=== PATIENT | male | born 2000 | race Caucasian/White ===

== ENCOUNTER 2022-07-14 08:43 | Emergency (ER) | payer OTHER ==
[~2022-07-14] VITALS: Ht 180.3 cm; Wt 70.9 kg
[2022-07-14] MEDS ORDERED: IBUP200C29 PO (09:05)
[2022-07-14 12:07] VITALS: BP 131/76
== END 2022-07-14 12:12 | disposition home or self-care (01) ==
LOC: M ED 08:43
DX: S80.911A Unspecified superficial injury of right knee, initial encounter (principal); W01.0XXA Fall on same level from slipping, tripping and stumbling without subsequent striking against object, initial encounter; Z79.1 Long term (current) use of non-steroidal anti-inflammatories (NSAID)

== ENCOUNTER 2023-12-27 14:21 | Inpatient (IN) | payer OTHER ==
[~2023-12-27] VITALS: Ht 180.3 cm; Wt 63.2 kg
[~2023-12-27 14:21] MED LIST: IBUP200C29 PO
[2023-12-27] MEDS: GLUCAGON INJ 1MG VIAL IV STA (17:10)
[2023-12-27] MEDS ORDERED: HOME MED LIST COMPLETE! XX SCH (18:40)
[2023-12-27] MEDS ORDERED: propofoL 200 MG/20 ML VIAL As Ordered ONE (19:32)
[2023-12-27] MEDS ORDERED: fentaNYL 100 MCG/2 ML INJECTION As Ordered ONE (19:32)
[2023-12-27] MEDS ORDERED: LIDOCAINE 2% 100MG/5ML SDV (FOR ANES.) As Ordered ONE (19:32)
[2023-12-27] MEDS ORDERED: GLYCOPYRROLATE INJ 0.2 MG/ML 2 ML VIAL As Ordered ONE (19:32)
[2023-12-27] MEDS ORDERED: MIDAZOLAM INJ 2MG/2ML VIAL As Ordered ONE (19:32)
[2023-12-27] MEDS ORDERED: SUCCINYLCHOLINE 100MG/5ML SYRINGE As Ordered ONE (19:32)
[2023-12-27] MEDS ORDERED: METOCLOPRAMIDE INJ 10MG/2ML VIAL As Ordered ONE (19:40)
[2023-12-27] MEDS ORDERED: ONDANSETRON 4MG 2ML VIAL As Ordered ONE (19:40)
[2023-12-27] MEDS ORDERED: ONDANSETRON 4MG 2ML VIAL IV PRN (20:25)
[2023-12-27] MEDS ORDERED: METOCLOPRAMIDE INJ 10MG/2ML VIAL IV PRN (20:25)
[2023-12-27 21:05] VITALS: BP 98/72; TEMP 98.2; O2SAT 98
[2023-12-27] MEDS: SUCRALFATE SUSP 1GM/10ML UD PO SCH (21:30)
[2023-12-27] MEDS: PANTOPRAZOLE 40MG TAB (PROTONIX) PO SCH (21:30)
[2023-12-27] MEDS: KCL 20MEQ IN D5/0.45NS 1000ML 1,000 ML IV SCH (21:30)
[2023-12-27] MEDS: MORPHINE 4 MG/ML 1ML VIAL IV ONE (21:31)
[2023-12-27 21:35] VITALS: BP 103/71; TEMP 98.6; O2SAT 97
[2023-12-27 22:05] VITALS: BP 101/71; TEMP 98.6; O2SAT 96
[2023-12-27 23:00] VITALS: BP 128/79; TEMP 99; O2SAT 96
[2023-12-27] MEDS: FLUCONAZOLE 400 MG in IV 1 EA IV SCH (23:27)
[2023-12-27] MEDS: GASTROGRAFIN SOLUTION 30ML PO SCH (23:34)
[2023-12-27 23:59] VITALS: BP 123/80; TEMP 98.6; O2SAT 97
[2023-12-28] VITALS (16 sets, daily range): BP systolic 114–135; BP diastolic 57–79; TEMP 98.3–99.2; O2SAT 93–99
[2023-12-28] MEDS: PIPERACILLIN/TAZOBACTAM SOD 3.375 GM in D5W MINI-BAG PLUS 50 ML IV SCH (01:01)
[2023-12-28] MEDS: MORPHINE 4 MG/ML 1ML VIAL IV STA (01:27)
[2023-12-28] MEDS: MORPHINE 4 MG/ML 1ML VIAL IV PRN (04:31)
[2023-12-28 05:16] LABS: BASO # 0.1 10^3/uL (0.0-0.2); BASO % 0.4 % (0.0-1.0); EOS # 0.1 10^3/uL (0.0-0.5); EOS % 0.9 % (0.0-3.0); HEMOGLOBIN 14.3 g/dl (13.5-17.5); LYMPH # 2.6 10^3/uL (1.5-5.0); LYMPH % 21.2 % (24.0-44.0); MEAN CORPUSCULAR HEMOGLOBIN 30.3 pg (27.0-33.0); MONO # 0.9 10^3/uL (0.0-0.8); MONO % 7.6 % (2.0-8.0); NEUTROPHILS # 8.5 10^3/uL (1.5-8.5); NEUTROPHILS % 69.6 % (36.0-66.0); PLATELET COUNT, AUTOMATED 219 10^3/uL (150-450); RED BLOOD COUNT 4.72 10^6/uL (4.30-6.10); WHITE BLOOD COUNT 12.2 10^3/uL (4.0-10.0)
[2023-12-28 05:53] LABS: BLOOD UREA NITROGEN 11 MG/DL (9-23); CALCIUM LEVEL 8.7 MG/DL (8.5-10.1); CARBON DIOXIDE LEVEL 24 MMOL/L (20-31); CHLORIDE LEVEL 111 MMOL/L (98-107); CREATININE FOR GFR 1.25 MG/DL (0.70-1.30); GLOMERULAR FILTRATION RATE > 60.0 (>60); GLUCOSE, FASTING 114 MG/DL (60-100); POTASSIUM SERUM 3.9 MMOL/L (3.5-5.1); SODIUM LEVEL 142 MMOL/L (136-145)
[2023-12-28] MEDS ORDERED: SUCRALFATE SUSP 1GM/10ML UD PO SCH (07:30)
[2023-12-28] MEDS: D5W/0.45% SODIUM CHLORIDE 1,000 ML IV SCH (08:33)
[2023-12-28] MEDS ORDERED: PANTOPRAZOLE 40MG TAB (PROTONIX) PO SCH (09:00)
[2023-12-28] MEDS ORDERED: GASTROGRAFIN SOLUTION 30ML As Ordered ONE (09:10)
[2023-12-28] MEDS ORDERED: PANTOPRAZOLE 40MG VIAL IV SCH (21:00)
== END 2023-12-28 21:40 | disposition short-term general hospital (02) | DRG 393 ==
LOC: M ED 14:21 → M SDC 18:09 → M MS5PR 21:05 → M ICU 12-28 01:33 → OBSVTOIN 12-28 10:10
PROVIDERS: ADMIT Surgery; ATTEND Surgery
PROC: 0DC28ZZ Extirpation of Matter from Middle Esophagus, Via Natural or Artificial Opening Endoscopic (ICD-10-PCS; principal; 2023-12-27 19:00)
DX: T18.128A Food in esophagus causing other injury, initial encounter (principal); S27.813A Laceration of esophagus (thoracic part), initial encounter; Y92.9 Unspecified place or not applicable; J98.2 Interstitial emphysema; Y93.9 Activity, unspecified